=== PATIENT | male | born 1970 | race Caucasian/White ===

== ENCOUNTER 2017-08-28 09:15 | Emergency (ER) | payer OTHER ==
[~2017-08-28] VITALS: Ht 182.9 cm; Wt 95.3 kg
== END 2017-08-28 13:32 | disposition home or self-care (01) ==
LOC: ER 09:15
DX: K64.8 Other hemorrhoids (principal)

== ENCOUNTER → 2017-10-30 | Emergency (ER) | payer OTHER ==
[~2017-10-30] VITALS: Ht 182.9 cm; Wt 93.0 kg
== END | disposition left against medical advice (07) ==
LOC: ER 12:55
DX: B34.9 Viral infection, unspecified (principal)